=== PATIENT | male | born 1975 | race Caucasian/White ===

== ENCOUNTER 2017-03-15 21:27 | Emergency (ER) | payer SELFPAY ==
--- NOTE | 2017-03-15 21:55 | Diagnostic Imaging Report ---
[facility] [id number] [facility].[address] [id number] Report Submission Date: Mar 15, 2017 9:53:50 PM ANIMAL COP Patient Study Name: ANJELICA TAPIA Date: Mar 15, 2017 9:37:41 PM ANIMAL COP Modality Type: CR Gender: M Description: LOWER EXTREMITY : 75 Institution: [facility] Physician: JO MARTIN 3 views of the left ankle Clinical history: Left ankle pain Findings: No acute fracture or dislocation is identified. There is soft tissue swelling about the medial and lateral malleolus. The alignment appears normal. Impression: Negative Electronically signed on Mar 15, 2017 9:53:50 PM ANIMAL COP by: Scott HENNESSY
[2017-03-15] MEDS ORDERED: IBUPROFEN 400 MG TABLET PO ONE (21:59)
[2017-03-15] MEDS ORDERED: traMADol HCL 50 MG TABLET PO ONE (21:59)
--- NOTE | 2017-03-15 22:27 | ED Physician Documentation ---
Lower Extremity Injury - HISTORIAN Historian: patient - HPI Stated Complaint: lt ankle injury Chief Complaint: Lower Extremity Injury Additional Information: twisted left ankle getting out of truck Front/Back of Body, Lg ([place]): 1 - pain and swelling Onset: hours (1) Where: work Severity: moderate Context: fall, twist Associated Symptoms:: unable to bear weight Modifying Factors:: pain on movement - ROS CONST: no problems CVS/RESP: none GI/: denies: problems urinating, nausea, vomiting MS/SKIN/LYMPH: ankle swelling NEURO: denies: headache, head injury, anxiety, depression - PAST HX Past History: none Immunizations: referred to PCP Allergies/Adverse Reactions: Allergies Allergy/AdvReac Type Severity Reaction Status Date / Time No Known Allergies Allergy Verified 03/15/17 21:36 Home Medications: Ambulatory Orders Medication Instructions Recorded NK [NK] 03/15/17 - SOCIAL HX Smoking History: non-smoker Alcohol Use: none Drug Use: none - FAMILY HX Family History: no significant history - VITAL SIGNS Vital Signs: Vital Signs Temp Pulse Resp BP Pulse Ox 98 F 90 18 163/84 97 03/15/17 21:27 03/15/17 21:27 03/15/17 21:27 03/15/17 21:27 03/15/17 21:27 - REVIEWED ASSESSMENTS Nursing Assessment Reviewed: Yes Vitals Reviewed: Yes Progress - Results/Orders Results/Orders: x-ray left ankle ordered - Progress Progress: Pt. placed in ziggy wrap, air splint, given Motrin 80 mg p.o. and Ultram 50 mg p.o. x1 in ER and discharged into cab that is taking him back to his hotel with instructions not to drive while taking Ultram. Critical Care Note - Critical Care Note Total Time (mins): 0 ED Results Lab/Radiology - Lab Results Lab Results: none ordered - Radiology Radiology Impressions: x-ray left ankle neg for fx, dislcation or aleksandr deformity - Orders Orders: ED Orders Category Date Time Status Ziggy Wrap Affected Extremity 1T Care 03/15/17 21:59 Active Air Splint 1T Care 03/15/17 21:59 Active Apply ice to affected area NOW Care 03/15/17 21:30 Active LEFT ANKLE [ANKLE 3 VIEWS OR MORE] [RAD] Stat Exams 03/15/17 Completed Ibuprofen [Advil] Med 03/15/17 21:59 Discontinued 800 mg PO NOW ONE traMADol HCL [Ultram] Med 03/15/17 21:59 Discontinued 50 mg PO NOW ONE Lower Extremities Injury Phy - Physical Exam General Appearance: alert, moderate distress Hips: bilateral hip: non-tender, normal inspection, normal range of motion, no evidence of injury Legs: bilateral: non-tender, normal inspection, normal range of motion, no evidence of injury Knees: bilateral: non-tender, normal inspection, normal range of motion, no evidence of injury Ankle: right: non-tender, normal inspection, normal range of motion, no evidence of injury, left: deformity (no deformity), joint effusion, swelling, other (no ligamentous axity) Foot: left foot: non-tender, normal inspection, normal range of motion, no evidence of injury DTR - Lower Extremities: knee (R): 2+, knee (L): 2+, ankle (R): 2+, ankle (L): 2 + Ligaments: No: laxity on anterior drawer, laxity on posterior drawe, laxity on medial stress, laxity on lateral stress Gait: limited by pain Neuro/Vascular/Tendon: no vascular compromise, motor nml, sensation nml Head/ENT: nml inspection, pharynx nml Neck/Back: nml inspection, non-tender Resp/CVS: chest non-tender, breath sounds nml, heart sounds nml, no resp. distress, lungs clear, reg. rate & rhythm Abdomen: non-tender, pelvis stable Discharge Clincal Impression: Left ankle sprain Qualifiers: Encounter type: initial encounter Involved ligament of ankle: calcaneofibular ligament Qualified Code(s): S93.412A - Sprain of calcaneofibular ligament of left ankle, initial encounter Referrals: Primary Doctor,No [Primary Care Provider] - 2 Days Comments: Pt. discharged with ziggy/ice/elevate instructions, air splint, script for Meloxicam 1 pill twice daily x 7 days and Ultram 50 mg #15 1 p.o. qid prn cheng Condition: Stable Disposition: 01 HOME, SELF-CARE Decision to Admit: NO Decision Time: 22:28
[2017-03-15 22:49] VITALS: BP 135/89
== END 2017-03-15 22:46 | disposition home or self-care (01) ==
LOC: ED 21:27
DX: S93.412A Sprain of calcaneofibular ligament of left ankle, initial encounter (principal); X58.XXXA Exposure to other specified factors, initial encounter; Y93.9 Activity, unspecified; Y92.9 Unspecified place or not applicable; Y99.9 Unspecified external cause status
CPT/HCPCS: 73610; 99282; 99283; L4350